=== PATIENT | female | born 1980 | race Caucasian/White ===

== ENCOUNTER 2022-10-08 18:46 | Emergency (ER) | payer MEDICAID ==
[2022-10-08 21:01] VITALS: BP 115/62
[2022-10-08] MEDS ORDERED: DIFLUCAN150 MG PO (21:36)
== END 2022-10-08 22:05 | disposition home or self-care (01) ==
LOC: ED 18:46
DX: N89.8 Other specified noninflammatory disorders of vagina (principal)

== ENCOUNTER 2022-10-10 21:39 | Emergency (ER) | payer MEDICARE, MEDICAID ==
[~2022-10-10 21:39] MED LIST: DIFLUCAN150 MG PO
[2022-10-10 23:29] VITALS: BP 100/55
[2022-10-10 23:45] VITALS: BP 94/58
[2022-10-11] VITALS (16 sets, daily range): BP systolic 79–107; BP diastolic 40–64
[2022-10-11 01:06] LABS: BASO% 0.9 % (0-3); EOS% 2.1 % (0-8); HEMATOCRIT 33.3 % (37.0-47.0); HEMOGLOBIN 9.8 g/dl (12.0-16.0); IMMATURE GRANULOCYTES 0.6 % (0.0-5.0); LYMPH% 30.5 % (15-41); MEAN CELL VOLUME 69.4 fL CALC (80.0-100.0); MEAN CORPUSCULAR HGB 20.4 pG CALC (26.0-32.0); MEAN CORPUSCULAR HGB CONC 29.4 g/dL CAL (32.0-36.0); MONO% 10.1 % (2-13); NEUT# 4.31 thou/uL (2.00-7.15); NEUT% 55.8 % (42-76); RED BLOOD COUNT 4.8 mill/uL (4.20-5.60); RED CELL DISTRI WIDTH 17.8 % (11.5-15.5)
[2022-10-11 01:19] LABS: ALKALINE PHOSPHATASE 66 u/l (38-126); ANION GAP 13 (6-22 (CALC)); BILIRUBIN, TOTAL 0.5 mg/dL (0.02-1.3); BUN 18 mg/dL (7-17); BUN/CREATININE RATIO 24 (12-20 (CALC)); CARBON DIOXIDE 19 mmol/l (22-30); CHLORIDE 111 mmol/l (95-108); CREATININE 0.8 mg/dL (0.5-1.0); GFR FOR AFR.AMER. > 60 ML/MIN (>=60 (CALC)); GFR OTHER RACES > 60 ML/MIN (>=60 (CALC)); POTASSIUM 4.3 mmol/l (3.5-5.1); SGOT/AST 50 u/l (14-36); SODIUM 138 mmol/l (137-146); TOTAL PROTEIN 7.8 g/dL (6.3-8.2)
[2022-10-11] MEDS ORDERED: LORTAB 1010 MG PO (01:35)
[2022-10-11] MEDS ORDERED: METRONIDAZOLE500 MG PO (01:35)
[2022-10-11] MEDS ORDERED: SB CLOTRIMAZ1 % EX (02:15)
== END 2022-10-11 02:30 | disposition home or self-care (01) ==
LOC: ED 21:39
PROVIDERS: Emergency Medicine
DX: A59.01 Trichomonal vulvovaginitis (principal)

== ENCOUNTER 2024-09-08 11:16 | Emergency (ER) | payer MEDICARE, MEDICAID ==
[~2024-09-08] VITALS: Ht 167.6 cm; Wt 81.0 kg
[~2024-09-08 11:16] MED LIST changes: +LORTAB 1010 MG PO; +METRONIDAZOLE500 MG PO; +SB CLOTRIMAZ1 % EX
[2024-09-08] MEDS ORDERED: ALLERGY RE50 MCG/ACT (13:10)
[2024-09-08] MEDS ORDERED: ZYRTEC10 MG PO (13:10)
[2024-09-08] MEDS ORDERED: VIBRAMYCIN100 M2 PO (13:10)
[2024-09-08] MEDS ORDERED: MEDDOSEPAK PO (13:10)
[2024-09-08] MEDS ORDERED: KETOROLAC TROMETHAMINE 30 MG/ML SDV IM ONE (13:10)
[2024-09-08 13:22] VITALS: BP 162/82
[2024-09-08] MEDS ORDERED: ASMANEX HFA50 MCG (15:44)
== END 2024-09-08 13:40 | disposition home or self-care (01) ==
LOC: ED 11:16
DX: J32.9 Chronic sinusitis, unspecified (principal); Z20.822 Contact with and (suspected) exposure to COVID-19